=== PATIENT | male | born 1970 | race Caucasian/White ===

== ENCOUNTER 2019-04-08 15:34 | Observation (INO) | payer MEDICARE, OTHER ==
[2019-04-08] MEDS ORDERED: NITROGLYCERIN OINT 1 INCH/GM PACKET TOPICAL STA (15:37)
--- NOTE | 2019-04-08 15:49 | ED ---
General Adult HPI - General Stated complaint: chest pain Source: patient, EMS, RN notes reviewed, old records reviewed - History of Present Illness Initial comments: This is a 48-year-old male presents emergency Department complaining of chest pain which started 40 minutes prior to arrival. Patient states he's had atrial fibrillation in the past as well as diabetes hypertension high cholesterol. Patient states he also smokes. Patient states he also strong family history of heart disease. Patient states the pain was associated with shortness of breath. Patient states nitroglycerin 2 reduce the pain considerably better started to come back. Patient denies any drinking today. Patient denies any recent fever chills or cough. Patient denies any swelling to legs or calf tenderness. Patient states the pain currently as 6 out of 10. - Related Data Home Medications Medication Instructions Recorded Confirmed ALPRAZolam [Xanax] 1 mg PO QID PRN 04/08/19 04/08/19 Albuterol Sulfate [Ventolin HFA] 2 puff INHALATION RT-Q4H PRN 04/08/19 04/08/19 Cariprazine HCl [Vraylar] 3 mg PO DAILY 04/08/19 04/08/19 Citalopram Hydrobromide [CeleXA] 40 mg PO DAILY 04/08/19 04/08/19 Dextroamphetamine/Amphetamine 10 mg PO DAILY 04/08/19 04/08/19 [Adderall] Dextroamphetamine/Amphetamine 30 mg PO DAILY 04/08/19 04/08/19 [Adderall] Gabapentin [Neurontin] 300 mg PO TID 04/08/19 04/08/19 Hydrocodone/Acetaminophen [[place] 1 tab PO TID PRN 04/08/19 04/08/19 10-325] Lisinopril [Zestril] 10 mg PO DAILY 04/08/19 04/08/19 lamoTRIgine [LaMICtal] 200 mg PO BID 04/08/19 04/08/19 metFORMIN HCL 1,000 mg PO BID 04/08/19 04/08/19 Previous Rx's Medication Instructions Recorded Aspirin 81 mg PO DAILY #1 chewable 04/09/19 Atorvastatin [Lipitor] 20 mg PO DAILY #30 tab 04/09/19 Nicotine 21Mg/24Hr Patch [Habitrol] 1 patch TRANSDERM DAILY #14 patch 04/09/19 Allergies Allergy/AdvReac Type Severity Reaction Status Date / Time No Known Allergies Allergy Verified 04/08/19 16:50 Review of Systems ROS Statement: Those systems with pertinent positive or pertinent negative responses have been documented in the HPI. ROS Other: All systems not noted in ROS Statement are negative. General Exam - General Exam Comments Initial Comments: GENERAL: Patient is well-developed and well-nourished. Patient is nontoxic and well- hydrated and is in mild distress. ENT: Neck is soft and supple. No significant lymphadenopathy is noted. Oropharynx is clear. Moist mucous membranes. Neck has full range of motion without eliciting any pain. EYES: The sclera were anicteric and conjunctiva were pink and moist. Extraocular movements were intact and pupils were equal round and reactive to light. Ey elids were unremarkable. PULMONARY: Unlabored respirations. Good breath sounds bilaterally. No audible rales rhonchi or wheezing was noted. CARDIOVASCULAR: There is a regular rate and rhythm without any murmurs gallops or rubs. ABDOMEN: Soft and nontender with normal bowel sounds. No palpable organomegaly was noted. There is no palpable pulsatile mass. SKIN: Skin is clear with no lesions or rashes and otherwise unremarkable. NEUROLOGIC: Patient is alert and oriented x3. Cranial nerves II through XII are grossly intact. Motor and sensory are also intact. Normal speech, volume and content. Symmetrical smile. MUSCULOSKELETAL: Normal extremities with adequate strength and full range of motion. No lower extremity swelling or edema. No calf tenderness. LYMPHATICS: No significant lymphadenopathy is noted PSYCHIATRIC: Normal psychiatric evaluation. Course Vital Signs 04/08/19 04/08/19 04/08/19 15:47 16:10 17:09 Temperature 98.4 F 98.2 F Pulse Rate 74 68 Pulse Rate [ 68 Pulse Oximetery ] Respiratory 16 18 18 Rate Blood Pressure 107/70 110/71 Blood Pressure 100/62 [Left Arm] O2 Sat by Pulse 97 96 97 Oximetry Medical Decision Making - Medical Decision Making EKG shows normal sinus rhythm at 75 bpm OK interval is 200 QRS 86 QT interval 398 QTC is 444. Patient's EKG shows no ST segment elevation or depression or T wave abnormalities are noted. I spoke to Dr. Kaiser he agreed to admit I wrote orders. I consulted cardiology CXR normal - Lab Data Result diagrams: 04/08/19 15:40 04/08/19 15:40 Lab Results 04/08/19 04/08/19 04/08/19 Range/Units 15:40 15:40 15:40 WBC 8.9 (3.8-10.6) k/uL RBC 5.14 (4.30-5.90) m/uL Hgb 15.0 (13.0-17.5) gm/dL Hct 46.4 (39.0-53.0) % MCV 90.3 (80.0-100.0) fL MCH 29.2 (25.0-35.0) pg MCHC 32.3 (31.0-37.0) g/dL RDW 12.5 (11.5-15.5) % Plt Count 256 (150-450) k/uL Neutrophils % 69 % Lymphocytes % 22 % Monocytes % 5 % Eosinophils % 2 % Basophils % 1 % Neutrophils # 6.1 (1.3-7.7) k/uL Lymphocytes # 1.9 (1.0-4.8) k/uL Monocytes # 0.4 (0-1.0) k/uL Eosinophils # 0.2 (0-0.7) k/uL Basophils # 0.1 (0-0.2) k/uL PT 9.9 (9.0-12.0) sec INR 0.9 (<1.2) APTT 21.8 L (22.0-30.0) sec Sodium 139 (137-145) mmol/L Potassium 5.1 (3.5-5.1) mmol/L Chloride 106 (98-107) mmol/L Carbon Dioxide 30 (22-30) mmol/L Anion Gap 3 mmol/L BUN 12 (9-20) mg/dL Creatinine 0.80 (0.66-1.25) mg/dL Est GFR (CKD-EPI)AfAm >90 (>60 ml/min/1.73 sqM) Est GFR (CKD-EPI)NonAf >90 (>60 ml/min/1.73 sqM) Glucose 92 (74-99) mg/dL Calcium 8.9 (8.4-10.2) mg/dL Magnesium 1.8 (1.6-2.3) mg/dL Total Bilirubin 0.5 (0.2-1.3) mg/dL AST 30 (17-59) U/L ALT 21 (4-49) U/L Alkaline Phosphatase 60 (38-126) U/L Troponin I (0.000-0.034) ng/mL Total Protein 7.2 (6.3-8.2) g/dL Albumin 4.2 (3.5-5.0) g/dL 04/08/19 Range/Units 15:40 WBC (3.8-10.6) k/uL RBC (4.30-5.90) m/uL Hgb (13.0-17.5) gm/dL Hct (39.0-53.0) % MCV (80.0-100.0) fL MCH (25.0-35.0) pg MCHC (31.0-37.0) g/dL RDW (11.5-15.5) % Plt Count (150-450) k/uL Neutrophils % % Lymphocytes % % Monocytes % % Eosinophils % % Basophils % % Neutrophils # (1.3-7.7) k/uL Lymphocytes # (1.0-4.8) k/uL Monocytes # (0-1.0) k/uL Eosinophils # (0-0.7) k/uL Basophils # (0-0.2) k/uL PT (9.0-12.0) sec INR (<1.2) APTT (22.0-30.0) sec Sodium (137-145) mmol/L Potassium (3.5-5.1) mmol/L Chloride (98-107) mmol/L Carbon Dioxide (22-30) mmol/L Anion Gap mmol/L BUN (9-20) mg/dL Creatinine (0.66-1.25) mg/dL Est GFR (CKD-EPI)AfAm (>60 ml/min/1.73 sqM) Est GFR (CKD-EPI)NonAf (>60 ml/min/1.73 sqM) Glucose (74-99) mg/dL Calcium (8.4-10.2) mg/dL Magnesium (1.6-2.3) mg/dL Total Bilirubin (0.2-1.3) mg/dL AST (17-59) U/L ALT (4-49) U/L Alkaline Phosphatase (38-126) U/L Troponin I <0.012 (0.000-0.034) ng/mL Total Protein (6.3-8.2) g/dL Albumin (3.5-5.0) g/dL Disposition Clinical Impression: Chest pain Disposition: ADMITTED IP TO THIS [facility] Time of Disposition: 17:23
[2019-04-08 15:56] LABS: Basophils # (A) 0.1 k/uL (0-0.2); Basophils % (A) 1 %; Eosinophils # (A) 0.2 k/uL (0-0.7); Eosinophils % (A) 2 %; HCT 46.4 % (39.0-53.0); Lymphocytes # (A) 1.9 k/uL (1.0-4.8); Lymphocytes % (A) 22 %; MCH 29.2 pg (25.0-35.0); MCHC 32.3 g/dL (31.0-37.0); MCV 90.3 fL (80.0-100.0); Mean Platelet Volume 6.8; Monocytes # (A) 0.4 k/uL (0-1.0); Monocytes % (A) 5 %; Neutrophils # (A) 6.1 k/uL (1.3-7.7); Neutrophils % (A) 69 %; Platelet Count 256 k/uL (150-450); RBC 5.14 m/uL (4.30-5.90); RDW 12.5 % (11.5-15.5); WBC 8.9 k/uL (3.8-10.6)
[2019-04-08 16:04] LABS: ALT 21 U/L (4-49); AST 30 U/L (17-59); African American GFR (CKD) >90 (>60 ml/min/1.73 sqM); Albumin 4.2 g/dL (3.5-5.0); Alkaline Phosphatase 60 U/L (38-126); Anion Gap 3 mmol/L; Blood Urea Nitrogen 12 mg/dL (9-20); Calcium 8.9 mg/dL (8.4-10.2); Carbon Dioxide 30 mmol/L (22-30); Chloride 106 mmol/L (98-107); Glucose 92 mg/dL (74-99); Magnesium 1.8 mg/dL (1.6-2.3); Non-African American GFR(CKD) >90 (>60 ml/min/1.73 sqM); Potassium 5.1 mmol/L (3.5-5.1); Sodium 139 mmol/L (137-145); Total Bilirubin 0.5 mg/dL (0.2-1.3); Total Protein 7.2 g/dL (6.3-8.2)
--- NOTE | 2019-04-08 16:05 | XR ---
EXAMINATION TYPE: XR chest 2V DATE OF EXAM: 04/08/2019 COMPARISON: 11/07/2010 HISTORY: Chest pain TECHNIQUE: Frontal and lateral views of the chest are obtained. FINDINGS: There is no focal air space opacity. No evidence for pneumothorax. No pleural effusion. The cardiac silhouette size is within normal limits. The osseous structures are grossly intact. IMPRESSION: 1. No acute cardiopulmonary process.
[2019-04-08 16:11] LABS: INR 0.9 (<1.2); Prothrombin Time 9.9 sec (9.0-12.0)
[2019-04-08 16:16] LABS: Partial Thromboplastin Time 21.8 sec (22.0-30.0)
[2019-04-08] MEDS ORDERED: HEPARIN SODIUM,PORCINE 5,000 UNIT/ML 1 ML VIAL IV ONE (16:31)
[2019-04-08] MEDS ORDERED: NITROGLYCERIN SL TABS 0.4 MG TAB SUBLINGUAL PRN (16:32)
[2019-04-08] MEDS ORDERED: HEPARIN SOD,PORK IN 0.45% NACL 25,000 UNIT in 0.45% NACL 1 250ML.BAG IV SCH (16:45)
[2019-04-08] MEDS ORDERED: HYDROcodone/APAP 10-325MG 1 EACH TAB PO PRN (18:22)
[2019-04-08] MEDS ORDERED: ALBUTEROL NEBULIZED 2.5 MG/3 ML INHALATION PRN (18:22)
[2019-04-08] MEDS ORDERED: ALPRAZolam 1 MG TAB PO PRN (18:22)
[2019-04-08 20:08] LABS: Glucose,Whole Blood 117 mg/dL (75-99)
[2019-04-08] MEDS: NITROGLYCERIN OINT 1 INCH/GM PACKET TOPICAL SCH (20:25)
[2019-04-08] MEDS ORDERED: metFORMIN 500 MG TAB PO SCH (21:00)
[2019-04-08] MEDS ORDERED: lamoTRIgine 100 MG TAB PO SCH (21:00)
[2019-04-08] MEDS ORDERED: GABAPENTIN 300 MG CAP PO SCH (22:00)
[2019-04-08] MEDS ORDERED: NICOTINE POLACRILEX 2 MG GUM BUCCAL PRN (22:32)
[2019-04-08] MEDS ORDERED: NICOTINE 21MG/24HR PATCH TRANSDERM SCH (22:45)
[2019-04-09 04:19] VITALS: RESP 18
[2019-04-09 05:06] LABS: Cholesterol 202 mg/dL (<200); HDL Cholesterol 43 mg/dL (40-60); LDL Cholesterol,Calculated 123 mg/dL (0-99); Triglycerides 181 mg/dL (<150)
[2019-04-09] MEDS: NITROGLYCERIN OINT 1 INCH/GM PACKET TOPICAL SCH (06:06)
[2019-04-09 06:38] LABS: Glucose,Whole Blood 105 mg/dL (75-99)
[2019-04-09 07:04] VITALS: TEMP 98.2
[2019-04-09] MEDS ORDERED: NON FORMULARY DRUG (Dextroamphetamine/Amphetamine [Adderall] 30 MG) PO SCH (09:00)
[2019-04-09] MEDS ORDERED: ASPIRIN 325 MG TAB PO SCH (09:00)
[2019-04-09] MEDS ORDERED: CARIPRAZINE HCL 3 MG PO SCH (09:00)
[2019-04-09] MEDS ORDERED: CITALOPRAM HYDROBROMIDE 20 MG TAB PO SCH (09:00)
[2019-04-09] MEDS ORDERED: NON FORMULARY DRUG (Dextroamphetamine/Amphetamine [Adderall] 10 MG) PO SCH (09:00)
[2019-04-09] MEDS ORDERED: LISINOPRIL 10 MG TAB PO SCH (09:00)
[2019-04-09] MEDS ORDERED: CAFFEINE CITRATE 60 MG/3 ML VIAL IV PRN (10:12)
[2019-04-09] MEDS ORDERED: AMINOPHYLLINE 500 MG/20 ML VIAL IV PRN (10:12)
[2019-04-09] MEDS ORDERED: REGADENOSON 0.4 MG/5 ML SYRINGE IV ONE (10:12)
[2019-04-09] MEDS ORDERED: ATORVASTATIN 20 MG TAB PO SCH (10:15)
[2019-04-09] MEDS ORDERED: SODIUM CHLORIDE 0.9% IV ONE (10:30)
[2019-04-09] MEDS ORDERED: DIPYRIDAMOLE IV ONE (10:30)
--- NOTE | 2019-04-09 11:00 | CONS ---
CONSULTATION Mr. Mckeon is a 48-year-old gentleman who is seen for the cardiac evaluation and chest pain. Patient gives a history that about one hour prior to coming to the emergency room he started having some chest discomfort. The pain was in the substernal area, dull aching pain with some left precordial pain. The pain only lasted for 5 to 10 minutes. It was not associated with any shortness of breath or sweating. The patient has a past history of skipping of the heart beats, exactly not show that the patient has atrial fibrillation. The patient had a stress test done about few years ago which was normal. Patient has a history of diabetes, hypertension, and he smokes. There is no definite history of premature coronary artery disease. ALLERGIES: None known of. REVIEW OF SYSTEMS: Review of the systems is otherwise unremarkable. PAST MEDICAL HISTORY: Past medical history includes history of neuropathy, skipped beats, history of anxiety, bipolar depression, and currently patient smokes every day. MEDICATIONS: Patient's home medications included cariprazine, albuterol, metformin 1000 mg b.i.d., Adderall, Xanax, Lamictal, Zestril, Neurontin, and Celexa. PHYSICAL EXAMINATION: Physical examination at present reveals a 48-year-old gentleman who does not appear to be in any acute distress. Blood pressure is 125/78 mmHg, heart rate is 70 per minute. Head/ENT examination is negative. Neck is supple. There is no increase in jugular venous pressure. Both the carotid pulses are felt. There is no bruit. Chest is symmetrical. HEART: The PMI is not felt. First and second heart sounds are normal. There is no evidence of any murmur. Lungs are clinically clear to auscultation and percussion. Abdomen is soft. Liver and spleen are not enlarged. Bowel sounds are heard. EXTREMITIES: Peripheral pulsations are 2+. EKG shows normal sinus rhythm without any acute ischemic changes. Patient's cardiac enzymes are unremarkable. The patient's LDL is 123 and triglycerides are 181. Troponins are normal. FINAL IMPRESSION: This patient's chest pain is suggestive of atypical angina. Patient does have risk factors of diabetes and hypertension. RECOMMENDATIONS: Patient will be evaluated with a Lexiscan Cardiolite study. In view of the history of diabetes, I will also start the patient on Crestor 20 mg daily. If there is any significant abnormality on the stress test, patient will need further evaluation with a cardiac catheterization. MMODL / IJN: [id number] /
[2019-04-09 11:18] VITALS: BP 128/80; PULSE 72
[2019-04-09 13:51] LABS: Glucose,Whole Blood 108 mg/dL (75-99)
--- NOTE | 2019-04-09 15:20 | NM ---
EXAMINATION TYPE: NM stress persantine cardiolit DATE OF EXAM: 04/09/2019 COMPARISON: NONE HISTORY: Chest pain TECHNIQUE: After the intravenous administration of 9.18 mCi Tc 99m Sestamibi - Cardiolite resting SP ECT images acquired 45 minutes post injection. The patient received 0.4mg Lexiscan, 27.8 mCi Tc 99m Sestamibi - Stress images obtained [address] injection FINDINGS: Review of stress and rest SPECT images demonstrates fixed decreased perfusion involving the anterior wall near the base as well as inferior wall. No definite stress-induced ischemia seen with certainty. Gated analysis shows normal wall motion with an estimated left ventricular ejection fraction of 50 % . IMPRESSION: No scintigraphic evidence for reversible ischemia.
--- NOTE | 2019-04-09 23:55 | P.HPIM ---
History of Present Illness H&P Date: 04/09/19 Chief Complaint: Burning chest History of presenting complaint: This is a very pleasant 48-year-old patient of Dr. Shelley. Chronic stable medical conditions include COPD, diabetes, hypertension, bipolar disorder. Patient yesterday felt a burning sensation across the chest. Lasted about 15-30 minutes. Went away on its own. No dizziness no lightheadedness no prescription no swelling. Decided to come in and get checked out. Pulmonary is a fair exercise tolerance. Does not get chest pains. Patient is a long-standing smoker. Review of systems: GEN.: None EYES: None HEENT: None NECK: None RESPIRATORY: Occasional wheezing CARDIOVASCULAR: As above GASTROINTESTINAL: Occasional heartburn GENITOURINARY: None MUSCULOSKELETAL: Some chronic joint pains LYMPHATICS: None HEMATOLOGICAL: None PSYCHIATRY: None NEUROLOGICAL: None Past medical history to include: COPD, diabetes, hypertension, bipolar Social history: Smokes a pack a day for 35 years. Patient is on disability. No". . Family history: Reviewed, noncontributory to presentation Physical examination: VITAL SIGNS: 98.2, 70, 18, 125/78, 98% on room air GENERAL: BMI 28, sitting up comfortable. EYES: Pupils equal. Conjunctiva normal. HEENT: External appearance of nose and ears normal, oral cavity grossly normal. NECK: JVD not raised; masses not palpable. HEART: First and second heart sounds are normal; no edema. LUNGS: Respiratory rate normal; decreased breath sounds mild wheezing. ABDOMEN: Soft, nontender, liver spleen not palpable, no masses palpable. PSYCH: Alert and oriented x3; mood and affect normal. NEUROLOGICAL: Cranial nerves grossly intact; no facial asymmetry, power and sensation grossly intact. LYMPHATICS: No lymph nodes palpable in the axilla and neck INVESTIGATIONS, reviewed in the clinical context: White count 8.9 hemoglobin 15 platelets 256 pressure 5.1 bun 12 creatine 0.80 LDL 123 EKG tracing personally reviewed by me-normal sinus rhythm Chest x-ray film personally reviewed by me-lung terry clear Assessment: -Anterior chest anterior chest wall burning sensation, rule out cardiac cause patient's coronary risk factors include diabetes, hypertension, smoking. -COPD in a current smoker -Diabetes mellitus type 2 -Essential hypertension -Bipolar disorder -Chronic nicotine dependence patient cigarette smoker Plan: Patient is put on aspirin and nitrate. Nuclear stress test was ordered. Seen by gynecology. Home medications resumed. Patient advised against smoking. Past Medical History Past Medical History: COPD, Diabetes Mellitus, Hypertension Additional Past Medical History / Comment(s): neuropathy, per pt "heart skips a beat" History of Any Multi-Drug Resistant Organisms: None Reported Past Surgical History: Adenoidectomy, Tonsillectomy Additional Past Surgical History / Comment(s): left shoulder sx, left big toe sx, carpel tunnel sx Past Anesthesia/Blood Transfusion Reactions: No Reported Reaction Past Psychological History: ADD/ADHD, Anxiety, Bipolar, Depression Additional Psychological History / Comment(s): IED Smoking Status: Current every day smoker Additional Past Alcohol Use History / Comment(s): pt smokes 1 ppd, pt stated when he was 12 years old. Past Drug Use History: Marijuana Medications and Allergies Home Medications Medication Instructions Recorded Confirmed Type ALPRAZolam [Xanax] 1 mg PO QID PRN 04/08/19 04/08/19 History Albuterol Sulfate [Ventolin HFA] 2 puff INHALATION RT-Q4H PRN 04/08/19 04/08/19 History Cariprazine HCl [Vraylar] 3 mg PO DAILY 04/08/19 04/08/19 History Citalopram Hydrobromide [CeleXA] 40 mg PO DAILY 04/08/19 04/08/19 History Dextroamphetamine/Amphetamine 10 mg PO DAILY 04/08/19 04/08/19 History [Adderall] Dextroamphetamine/Amphetamine 30 mg PO DAILY 04/08/19 04/08/19 History [Adderall] Gabapentin [Neurontin] 300 mg PO TID 04/08/19 04/08/19 History Hydrocodone/Acetaminophen [[place] 1 tab PO TID PRN 04/08/19 04/08/19 History 10-325] Lisinopril [Zestril] 10 mg PO DAILY 04/08/19 04/08/19 History lamoTRIgine [LaMICtal] 200 mg PO BID 04/08/19 04/08/19 History metFORMIN HCL 1,000 mg PO BID 04/08/19 04/08/19 History Aspirin 81 mg PO DAILY #1 chewable 04/09/19 Rx Atorvastatin [Lipitor] 20 mg PO DAILY #30 tab 04/09/19 Rx Nicotine 21Mg/24Hr Patch [Habitrol] 1 patch TRANSDERM DAILY #14 patch 04/09/19 Rx Allergies Allergy/AdvReac Type Severity Reaction Status Date / Time No Known Allergies Allergy Verified 04/08/19 16:50 Physical Exam Vitals: Vital Signs Temp Pulse Pulse Resp BP BP BP 04/09/19 07:03 98.2 F 70 18 125/78 04/09/19 04:00 98.3 F 72 18 107/69 04/09/19 03:51 68 16 04/09/19 00:00 98.2 F 68 16 115/71 04/08/19 20:00 97.8 F 67 16 116/72 04/08/19 19:51 68 18 04/08/19 17:57 68 18 04/08/19 17:09 98.2 F 68 18 100/62 04/08/19 16:10 68 18 110/71 04/08/19 15:47 98.4 F 74 16 107/70 Pulse Ox 04/09/19 07:03 98 04/09/19 04:00 97 04/09/19 03:51 04/09/19 00:00 98 04/08/19 20:00 96 04/08/19 19:51 04/08/19 17:57 04/08/19 17:09 97 04/08/19 16:10 96 04/08/19 15:47 97 Intake and Output 04/08/19 04/09/19 04/09/19 22:59 06:59 14:59 Intake Total 148.784 Balance 148.784 Intake: Intake, IV Titration 148.784 Amount Heparin Sod,Pork in 0.45% 148.784 NaCl 25,000 unit In 0.45 % NaCl 1 250ml.bag @ 10.4 UNITS/KG/HR 10.001 mls/ hr IV .[facility]H [facility] Rx#: [id number] Other: Voiding Method Toilet Toilet Toilet Weight 96.162 kg Results CBC & Chem 7: 04/08/19 15:40 04/08/19 15:40 Labs: Abnormal Lab Results - Last 24 Hours (Table) 04/08/19 04/08/19 04/09/19 Range/Units 15:40 20:07 04:40 APTT 21.8 L (22.0-30.0) sec POC Glucose (mg/dL) 117 H (75-99) mg/dL Triglycerides 181 H (<150) mg/dL Cholesterol 202 H (<200) mg/dL LDL Cholesterol, Calc 123 H (0-99) mg/dL 04/09/19 Range/Units 06:35 APTT (22.0-30.0) sec POC Glucose (mg/dL) 105 H (75-99) mg/dL Triglycerides (<150) mg/dL Cholesterol (<200) mg/dL LDL Cholesterol, Calc (0-99) mg/dL Thrombosis Risk Factor Assmnt - Choose All That Apply Any of the Below Risk Factors Present?: Yes Each Factor Represents 1 point: Age 41-60 years, Obesity (BMI >25) Other Risk Factors: No Other congenital or acquired thrombophilia - If yes, enter type in comment: No Thrombosis Risk Factor Assessment Total Risk Factor Score: 2 Thrombosis Risk Factor Assessment Level: Low Risk
--- NOTE | 2019-04-10 | P.DS ---
Providers Date of admission: 04/08/19 16:32 Expected date of discharge: 04/09/19 Attending physician: Demetrius Holm Consults: 04/08/19 16:32 Consult Physician Urgent Consulting Provider: [facility] Reason/Comments: Unstable angina Do you want consulting provider notified?: Yes Primary care physician: Luis Angel [facility] Course: Chief Complaint: Burning chest History of presenting complaint: This is a very pleasant 48-year-old patient of Dr. Shelley. Chronic stable medical conditions include COPD, diabetes, hypertension, bipolar disorder. Patient yesterday felt a burning sensation across the chest. Lasted about 15-30 minutes. Went away on its own. No dizziness no lightheadedness no prescription no swelling. Decided to come in and get checked out. Has a fair exercise tolerance. Does not get chest pains. Patient is a long-standing smoker. Troponins were negative. Nuclear stresses were negative. Could be reflux.. Cleared by cardiology. Consultation: Dr. VC Romo from cardiology Physical examination: VITAL SIGNS: 98.4, 74, 16, 107/70, 97% on room air GENERAL: BMI 28, sitting up comfortable. EYES: Pupils equal. Conjunctiva normal. HEENT: External appearance of nose and ears normal, oral cavity grossly normal. NECK: JVD not raised; masses not palpable. HEART: First and second heart sounds are normal; no edema. LUNGS: Respiratory rate normal; decreased breath sounds mild wheezing. ABDOMEN: Soft, nontender, liver spleen not palpable, no masses palpable. PSYCH: Alert and oriented x3; mood and affect normal. INVESTIGATIONS, reviewed in the clinical context: White count 8.9 hemoglobin 15 platelets 256 pressure 5.1 bun 12 creatine 0.80 LDL 123 EKG tracing personally reviewed by me-normal sinus rhythm Chest x-ray film personally reviewed by me-lung terry clear Nuclear stress test-negative Assessment: -Anterior chest anterior chest wall burning sensation, possible reflux -COPD in a current smoker -Diabetes mellitus type 2 -Essential hypertension -Bipolar disorder -Chronic nicotine dependence patient cigarette smoker Disposition: Home Plan - Discharge Summary Discharge Rx Participant: No New Discharge Prescriptions: New Aspirin 81 mg PO DAILY #1 chewable Nicotine 21Mg/24Hr Patch [Habitrol] 1 patch TRANSDERM DAILY #14 patch Atorvastatin [Lipitor] 20 mg PO DAILY #30 tab Continue Albuterol Sulfate [Ventolin HFA] 2 puff INHALATION RT-Q4H PRN PRN Reason: Shortness Of Breath metFORMIN HCL 1,000 mg PO BID Hydrocodone/Acetaminophen [[place] 10-325] 1 tab PO TID PRN PRN Reason: Pain Dextroamphetamine/Amphetamine [Adderall] 10 mg PO DAILY Dextroamphetamine/Amphetamine [Adderall] 30 mg PO DAILY ALPRAZolam [Xanax] 1 mg PO QID PRN PRN Reason: Anxiety lamoTRIgine [LaMICtal] 200 mg PO BID Lisinopril [Zestril] 10 mg PO DAILY Gabapentin [Neurontin] 300 mg PO TID Citalopram Hydrobromide [CeleXA] 40 mg PO DAILY Cariprazine HCl [Vraylar] 3 mg PO DAILY Discharge Medication List ALPRAZolam [Xanax] 1 mg PO QID PRN 04/08/19 [History] Albuterol Sulfate [Ventolin HFA] 2 puff INHALATION RT-Q4H PRN 04/08/19 [History] Cariprazine HCl [Vraylar] 3 mg PO DAILY 04/08/19 [History] Citalopram Hydrobromide [CeleXA] 40 mg PO DAILY 04/08/19 [History] Dextroamphetamine/Amphetamine [Adderall] 10 mg PO DAILY 04/08/19 [History] Dextroamphetamine/Amphetamine [Adderall] 30 mg PO DAILY 04/08/19 [History] Gabapentin [Neurontin] 300 mg PO TID 04/08/19 [History] Hydrocodone/Acetaminophen [[place] 10-325] 1 tab PO TID PRN 04/08/19 [History] Lisinopril [Zestril] 10 mg PO DAILY 04/08/19 [History] lamoTRIgine [LaMICtal] 200 mg PO BID 04/08/19 [History] metFORMIN HCL 1,000 mg PO BID 04/08/19 [History] Aspirin 81 mg PO DAILY #1 chewable 04/09/19 [Rx] Atorvastatin [Lipitor] 20 mg PO DAILY #30 tab 04/09/19 [Rx] Nicotine 21Mg/24Hr Patch [Habitrol] 1 patch TRANSDERM DAILY #14 patch 04/09/19 [Rx] Follow up Appointment(s)/Referral(s): senior architectural designerdr [Other] - 1 Week Luis Angel Shelley MD [Primary Care Provider] - 1-2 days Discharge Disposition: HOME SELF-CARE
--- NOTE | 2019-04-10 12:53 | EST ---
EXERCISE STRESS DATE OF SERVICE: 04/09/2019 AGE: 48 SEX: Male HT: 73" WT: 212 pounds PROTOCOL: Persantine Cardiolite STAGE: DURATION OF EXERCISE: HEART RATE REST: 73 BLOOD PRESSURE REST: 128/73 MAXIMUM HEART RATE ACHIEVED: 87 MAXIMUM BLOOD PRESSURE: 133/79 85% MPHR: 145 100% MPHR: 171 METS: INDICATIONS: Chest pain. CLINICAL INFORMATION: Patient was given Persantine infusion according to the standard protocol. Peak heart rate of 87 was achieved. Maximum blood pressure of 133/79 mmHg was noted. Resting EKG shows normal sinus rhythm with normal [place] interval and QRS duration and normal ST-T waves. No ST-segment depression suggestive of ischemia is noted. The results of the nuclear study will follow. TONG / JORDANN: [id number] /
== END 2019-04-09 15:46 | disposition home or self-care (01) ==
LOC: EC 15:34 → 1SOBS 16:32
PROVIDERS: ADMIT Hospitalist; ATTEND Hospitalist
DX: R07.89 Other chest pain (principal); J44.9 Chronic obstructive pulmonary disease, unspecified; F31.9 Bipolar disorder, unspecified; F90.9 Attention-deficit hyperactivity disorder, unspecified type; F41.9 Anxiety disorder, unspecified; I48.91 Unspecified atrial fibrillation; E11.9 Type 2 diabetes mellitus without complications; I10 Essential (primary) hypertension; E78.00 Pure hypercholesterolemia, unspecified; F17.210 Nicotine dependence, cigarettes, uncomplicated; Z82.49 Family history of ischemic heart disease and other diseases of the circulatory system; Z79.84 Long term (current) use of oral hypoglycemic drugs; Z79.891 Long term (current) use of opiate analgesic; Z79.899 Other long term (current) drug therapy; Z90.89 Acquired absence of other organs
CPT/HCPCS: 93005 ×2; 96366 ×2; 96376; 96365; 99285; 36415; 93017; 93306; 80061; 80053; 83735; 84484 ×2; 85025; 85610; 85730 ×2; 71046; 78452; G0378 ×2; A9500; S4990; J1644 ×2; J1245